=== PATIENT | female | born 1955 | race Two or more races ===

== ENCOUNTER 2018-07-22 02:04 | Emergency (ER) | payer OTHER ==
[~2018-07-22] VITALS: Ht 165.1 cm; Wt 75.3 kg
[2018-07-22 02:12] VITALS: BP 138/87
[2018-07-22] MEDS ORDERED: ACETAMINOPHEN 325 MG TABLET PO ONE (03:00)
[2018-07-22] MEDS ORDERED: ACETAMINOPHEN 325 MG TABLET ONE (03:27)
== END 2018-07-22 03:25 | disposition home or self-care (01) ==
LOC: ER 02:05
DX: Z13.89 Encounter for screening for other disorder (principal); I10 Essential (primary) hypertension
CPT/HCPCS: 93005; 99283; A4606; Z7610

== ENCOUNTER 2018-07-24 08:50 | Emergency (ER) | payer OTHER ==
[~2018-07-24] VITALS: Ht 160 cm; Wt 74.8 kg
[2018-07-24 09:00] VITALS: BP 139/71
== END 2018-07-24 09:06 | disposition home or self-care (01) ==
LOC: ER 08:51
DX: K04.7 Periapical abscess without sinus (principal); I10 Essential (primary) hypertension
CPT/HCPCS: 99283; A4606; Z7610